=== PATIENT | female | born 1990 | race Caucasian/White ===

== ENCOUNTER 2016-10-12 20:18 | Emergency (ER) | payer BC ==
[~2016-10-12] VITALS: Ht 175.3 cm; Wt 86.4 kg
[~2016-10-12 20:18] MED LIST: NO HOME MEDICATIONS; VOLTAREN 75 DR75 MG PO
[2016-10-12 20:20] VITALS: TEMP 99.4
[2016-10-12] MEDS ORDERED: ULTRAM 50MG TAB50 MG PO (20:22)
[2016-10-12] MEDS ORDERED: NORA-BE0.35 MG PO (20:22)
[2016-10-12 21:09] LABS: BASO # 0.1 (0.0-0.2); BASO % 0.7 % (0.0-2.0); EOS # 0.1 (0.0-0.7); GRAN # 5.4 (1.4-6.5); GRAN % 57.2 % (42.2-75.2); HEMATOCRIT 37.8 % (37.0-47.0); HEMOGLOBIN 12.9 g/dl (12.5-16.0); LYMPH # 3.1 (1.2-3.4); LYMPH % 32.6 % (20.0-51.0); MEAN CELL VOLUME 86 fl (80.0-100.0); MEAN CORPUSCULAR HEMOGLOBIN 29 pg (27.0-31.0); MEAN CORPUSCULAR HGB CONC 34 g/dl (33.0-37.0); MEAN PLATELET VOLUME 11.2 fl (7.4-10.4); MONO # 0.8 (0.1-0.6); MONO % 8.3 % (1.7-9.3); PLATELET COUNT 300 K/mm3 (130-400); RED BLOOD COUNT 4.42 M/mm3 (4.10-5.30); REDCELL DISTRIBUTION WIDTH-CV 12.2 % (11.5-14.5); WHITE BLOOD COUNT 9.4 K/mm3 (4.8-10.8)
[2016-10-12 21:19] LABS: ADJUSTED CALCIUM 8.9 mg/dL (8.4-10.2); ALANINE AMINOTRANSFERASE 37 U/L (9-52); ALBUMIN 4.3 gm/dL (3.5-5.0); ALKALINE PHOSPHATASE 49 U/L (50-136); ANION GAP 11 mmol/L (7-16); BILIRUBIN,TOTAL 0.7 mg/dL (0.0-1.0); BLOOD UREA NITROGEN 12 mg/dL (7-17); CALCIUM 9.1 mg/dL (8.4-10.2); CARBON DIOXIDE 25 mmol/L (22-30); CHLORIDE 105 mmol/L (98-107); CREATININE, serum 0.88 mg/dL (0.52-1.25); GLUCOSE 81 mg/dL (74-106); POTASSIUM 3.5 mmol/L (3.4-5.0); SODIUM 141 mmol/L (137-145); TOTAL PROTEIN 6.8 gm/dL (6.4-8.2)
[2016-10-12 21:23] LABS: PROTHROMBIN TIME 11.1 SECONDS (9.7-12.8)
[2016-10-12 21:32] LABS: TROPONIN-I < 0.012 ng/mL (0.000-0.034)
[2016-10-12 22:47] VITALS: BP 113/71; PULSE 81
== END 2016-10-12 22:50 | disposition home or self-care (01) ==
LOC: COL.ER 20:18
PROVIDERS: Family Medicine
DX: R09.1 Pleurisy (principal); Z86.718 Personal history of other venous thrombosis and embolism
CPT/HCPCS: J1885